=== PATIENT | male | born 1965 | race Caucasian/White ===

== ENCOUNTER 2021-07-24 12:39 | Emergency (ER) | payer SELFPAY ==
[~2021-07-24] VITALS: Ht 177.8 cm; Wt 81.0 kg
[2021-07-24] MEDS ORDERED: ASPIRIN CHEWABLE 81 MG TABLET. PO ONE (13:00)
[2021-07-24] MEDS ORDERED: NITROGLYCERIN SUBLINGUAL 0.4 MG BOTTLE OF 25. SL PRN (13:00)
--- NOTE | 2021-07-24 13:19 | EKG ---
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
--- NOTE | 2021-07-24 13:33 | RAD ---
AP chest. HISTORY: Chest pain AP view was taken of the chest. Lungs are clear. Heart is normal in size. There is no pleural effusio n. IMPRESSION: 1. No acute chest disease. Electronically signed by: Mitch Eaton MD (07/24/2021 1:30 PM) [facility]
--- NOTE | 2021-07-24 13:45 | PHYS DOC ---
General Adult EDM: Chief Complaint: CHEST PAIN HPI: HPI: Patient is a 56-year-old male who presents to the emergency department for substernal chest pain that started 2 weeks ago. The pain is intermittent. It does not radiate. He describes it as a sharp pain. He rates it 9 out of 10. Associated with the chest pain is lightheadedness and shortness of breath. Patient reports that when the pain initially started he did have some tingling on his right side. Patient is a current smoker and has a chronic cough. He denies any nausea, vomiting, fevers, abdominal pain. He does not have any medical history other than a heart murmur. (RADHA WATSON APRN) Review of Systems: Review of Systems: Constitutional: negative unless reported in HPI Eyes: negative unless reported in HPI HENT: negative unless reported in HPI Respiratory: negative unless reported in HPI Cardiovascular: negative unless reported in HPI GI: negative unless reported in HPI : negative unless reported in HPI Musculoskeletal: negative unless reported in HPI Integument: negative unless reported in HPI Neurologic: negative unless reported in HPI Endocrine: negative unless reported in HPI Lymphatic: negative unless reported in HPI Psychiatric: negative unless reported in HPI (RADHA WATSON APRN) Current Medications: Current Meds: Current Medications Medications (Trade) Dose Ordered Sig/Rosales Start Time Stop Time Status Last Admin Dose Admin Aspirin (Aspirin Chewable) 324 mg 1X ONCE 07/24/21 13:00 07/24/21 13:01 UNV Nitroglycerin (Nitrostat) 0.4 mg PRN Q5MIN PRN 07/24/21 13:00 07/25/21 12:59 UNV (RADHA WATSON CEMETERY COUNSELOR) Physical Exam: PE: Constitutional: Well developed, well nourished, no acute distress, non-toxic appearance. [] HENT: Normocephalic, atraumatic, bilateral external ears normal, oropharynx moist, no oral exudates, nose normal. [] Eyes: PERRL, EOMI, conjunctiva normal, no discharge. [] Neck: Normal range of motion, no tenderness, supple, no stridor. [] Cardiovascular:Heart rate regular rhythm, no murmur [] Lungs & Thorax: Bilateral breath sounds clear to auscultation [] Abdomen: Bowel sounds normal, soft, no tenderness, no masses, no pulsatile masses. [] Skin: Warm, dry, no erythema, no rash. [] Back: Normal range of motion Extremities: No tenderness, no cyanosis, no clubbing, ROM intact, no edema. [] Neurologic: Alert and oriented X 3, normal motor function, normal sensory function, no focal deficits noted. [] Psychologic: Affect normal, judgement normal, mood normal. [] (RADHA WATSON APRN) Current Patient Data: Labs: Laboratory Tests Test 07/24/21 13:45 07/24/21 16:18 White Blood Count 8.3 x10^3/uL Red Blood Count 4.67 x10^6/uL Hemoglobin 14.9 g/dL Hematocrit 43.9 % Mean Corpuscular Volume 94 fL Mean Corpuscular Hemoglobin 32 pg Mean Corpuscular Hemoglobin Concent 34 g/dL Red Cell Distribution Width 13.3 % Platelet Count 299 x10^3/uL Neutrophils (%) (Auto) 70 % Lymphocytes (%) (Auto) 17 % Monocytes (%) (Auto) 10 % Eosinophils (%) (Auto) 2 % Basophils (%) (Auto) 2 % Neutrophils # (Auto) 5.8 x10^3uL Lymphocytes # (Auto) 1.4 x10^3/uL Monocytes # (Auto) 0.8 x10^3/uL Eosinophils # (Auto) 0.2 x10^3/uL Basophils # (Auto) 0.1 x10^3/uL Sodium Level 142 mmol/L Potassium Level 4.2 mmol/L Chloride Level 104 mmol/L Carbon Dioxide Level 28 mmol/L Anion Gap 10 Blood Urea Nitrogen 13 mg/dL Creatinine 1.0 mg/dL Estimated GFR (Cockcroft-Gault) 76.7 BUN/Creatinine Ratio 13 Glucose Level 98 mg/dL Calcium Level 8.6 mg/dL Total Bilirubin 0.8 mg/dL Aspartate Amino Transf (AST/SGOT) 25 U/L Alanine Aminotransferase (ALT/SGPT) 36 U/L Alkaline Phosphatase 70 U/L Troponin I High Sensitivity 21 ng/L 22 ng/L Total Protein 6.9 g/dL Albumin 3.6 g/dL Albumin/Globulin Ratio 1.1 Current Medications Medications (Trade) Dose Ordered Sig/Rosales Route PRN Reason Start Time Stop Time Status Last Admin Dose Admin Aspirin (Aspirin Chewable) 324 mg 1X ONCE PO 07/24/21 13:00 07/24/21 14:09 DC 07/24/21 13:00 Nitroglycerin (Nitrostat) 0.4 mg PRN Q5MIN PRN SL CP RATING > 07/0507/24/21 13:00 07/25/21 12:59 (RADHA WATSON APRN) EKG: EKG: EKG performed by ER staff at 1247 shows sinus rhythm with a rate of 85, QTC is 436, patient does have slight elevation of his T waves but no reciprocal changes. No STEMI read by Dr. Hernández at 1254 [] (RADHA WATSON APRN) Radiology/Procedures: Radiology/Procedures: []PROCEDURE: PORTABLE CHEST 1V AP chest. HISTORY: Chest pain AP view was taken of the chest. Lungs are clear. Heart is normal in size. There is no pleural effusion. IMPRESSION: 1. No acute chest disease. Electronically signed by: Mitch Eaton MD (07/24/2021 1:30 PM) [facility] DICTATED AND SIGNED BY: MITCH EATON MD DATE: 07/24/21 1330 CC: RADHA WATSON APRN; PCP,UNKNOWN ~MTH0 0 (RADHA WATSON APRN) Heart Score: C/O Chest Pain: Yes HEART Score for Chest Pain: HEART Score for Chest Pain Response (Comments) Value History Slighlty/Non-Suspicious 0 ECG Nonspecific Repolarizatio 1 Age >45 - < 65 1 Risk Factors 1 or 2 Risk Factors 1 Troponin < Normal Limit 0 Total 3 Risk Factors: Risk Factors: DM, Current or recent (<one month) smoker, HTN, HLP, family history of CAD, obesity. Risk Scores: Score 0 - 3: 2.5% MACE over next 6 weeks - Discharge Home Score 4 - 6: 20.3% MACE over next 6 weeks - Admit for Clinical Observation Score 7 - 10: 72.7% MACE over next 6 weeks - Early Invasive Strategies (RADHA WATSON APRN) Course & Med Decision Making: Course & Med Decision Making Pertinent Labs and Imaging studies reviewed. (See chart for details) [] Patient presents to the emergency department for a 2-week history of substernal chest pain that is intermittent. Patient reports with the chest pain he has lightheadedness and shortness of breath. Patient does have a history of smoking. Patient has no other medical history. Work-up in the ER consisted of blood work, EKG, chest x-ray. Patient was treated with aspirin and nitroglycerin. His chest pain was still present after nitro. CXR unremarkable. EKG does show some slight elevation in t waves but no reciprical changes. CBC, CMP, troponin negative. Repeat troponin was performed that was within normal limits. Patient's chest pain did start 2 weeks ago therefore delta troponins are not necessary. 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 I discussed with patient all findings and diagnostic testing as well as the need to follow-up with PCP for further evaluation and treatment or return to the ER if any new or worsening symptoms. Patient reports that he follows up with [facility] and will call them on Monday. Strict return precautions were also discussed at length. Patient voiced understanding and agreement with the plan. Patient is hemodynamically stable at the time of disposition. (RADHA WATSON APRN) Dragon Disclaimer: Dragon Disclaimer: This electronic medical record was generated, in whole or in part, using a voice recognition dictation system. (RADHA WATSON APRN) Attending Co-Sign The patient was seen and interviewed as well as examined at the bedside. The chart was reviewed. The case was discussed. Agree with the plan of care. (SUHA HERNÁNDEZ DO) Departure Departure: Impression: Primary Impression: Atypical chest pain Disposition: 01 HOME / SELF CARE / HOMELESS Condition: GOOD Referrals: PCP,UNKNOWN (PCP) RENETTA MEJIA MD, VENKAT R MD Patient Instructions: Chest Pain (Nonspecific) Additional Instructions: You were seen in the emergency department today for chest pain. Your work-up in the ER was reassuring. As discussed, at this time it does not appear at this time you are experiencing acute coronary syndrome. However, if your symptoms return please come back to the emergency department for reevaluation. Please take Tylenol and ibuprofen for your pain at home. Please discontinue smoking as that puts you at increased risk for cardiac events. Please follow-up with your primary care provider. If you not have a primary care provider 1 was provided for you here for follow-up. You are also provided with the name and information for racing manager at that you can follow-up with. Please contact them on Monday to set up a follow-up of that visit. Return to the emergency department if you develop chest pain, shortness of breath, high fevers refractory to treatment, intractable nausea vomiting, lightheadedness, syncope or any new or worsening concerns. RADHA WATSON APRN Jul 24, 2021 13:45 SUHA HERNÁNDEZ DO Jul 25, 2021 06:46
[2021-07-24 14:09] LABS: BASO # 0.1 x10^3/uL (0.0-0.2); BASO % 2 % (0-3); EOS # 0.2 x10^3/uL (0.0-0.7); EOS % 2 % (0-3); HEMATOCRIT 43.9 % (39.0-53.0); HEMOGLOBIN 14.9 g/dL (13.0-17.5); LYMPH # 1.4 x10^3/uL (1.0-4.8); LYMPH % 17 % (24-48); MEAN CORPUSCULAR HEMOGLOBIN 32 pg (25-35); MEAN CORPUSCULAR HGB CONC 34 g/dL (31-37); MEAN CORPUSCULAR VOLUME 94 fL (79-100); MONO # 0.8 x10^3/uL (0.0-1.1); MONO % 10 % (0-9); NEUT # 5.8 x10^3uL (1.8-7.7); NEUT % 70 % (31-73); PLATELET COUNT 299 x10^3/uL (140-400); RED BLOOD COUNT 4.67 x10^6/uL (4.30-5.70); RED CELL DISTRIBUTION WIDTH 13.3 % (11.5-14.5); WHITE BLOOD COUNT 8.3 x10^3/uL (4.0-11.0)
[2021-07-24 14:27] LABS: CALCIUM 8.6 mg/dL (8.5-10.1); GFR 76.7; POTASSIUM 4.2 mmol/L (3.5-5.1)
[2021-07-24 14:29] LABS: ALBUMIN 3.6 g/dL (3.4-5.0); ALBUMIN/GLOBULIN RATIO 1.1 (1.0-1.7); TOTAL BILIRUBIN 0.8 mg/dL (0.2-1.0); TOTAL PROTEIN 6.9 g/dL (6.4-8.2)
[2021-07-24 18:39] VITALS: BP 151/100
== END 2021-07-24 17:57 | disposition home or self-care (01) ==
LOC: ER 12:39
DX: R07.2 Precordial pain (principal); R42 Dizziness and giddiness; R06.02 Shortness of breath; F17.200 Nicotine dependence, unspecified, uncomplicated
CPT/HCPCS: 36415; 71045; 80053; 84484; 85025; 93005; 99285